=== PATIENT | female | born 2005 | race Caucasian/White ===

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

== ENCOUNTER 2023-02-24 16:42 | Outpatient (CLI) | payer SELFPAY ==
[2023-02-24 16:20] LABS: HCG Quant, Pregnancy 8 mIU/mL (1-3)
== END 2023-02-24 16:43 | disposition home or self-care (01) ==
LOC: LBO 16:50
PROVIDERS: Visit Provider Nurse Practitioner Women's Health
DX: N92.5 Other specified irregular menstruation (principal)
CPT/HCPCS: 36415; 84702

== ENCOUNTER 2023-02-27 03:16 | Outpatient (CLI) | payer SELFPAY ==
[2023-02-27 16:38] LABS: HCG Quant, Pregnancy 3 mIU/mL (1-3)
== END 2023-02-27 03:17 | disposition home or self-care (01) ==
PROVIDERS: Visit Provider Nurse Practitioner Women's Health
DX: N92.5 Other specified irregular menstruation (principal); Z32.02 Encounter for pregnancy test, result negative
CPT/HCPCS: 36415; 84702

== ENCOUNTER 2024-04-19 21:25 | Emergency (ER) | payer SELFPAY ==
[2024-04-19 21:26] VITALS: BP 132/85; PULSE 78; RESP 16; TEMP 36.8; O2SAT 99
--- NOTE | 2024-04-19 22:00 | ED.GENADUL_ITS ---
Discharge Plan Disposition Patient Disposition: Home Condition: Good Discharge Details Clinical Impression: Menstrual cycle problem Primary Care Provider: None,None ED Provider: Francois Chandler Home Meds and New Rx's Prescriptions: No Action budesonide-formoterol [Symbicort] 160-4.5 mcg/actuation HFA aerosol inhaler 2 puff inhalation BID Qty: 10.2 1RF Rx Instructions: take 2 puffs twice a day and 2 puffs every 4 hours as needed for work of breathing/wheezing albuterol sulfate 2.5 mg/0.5 mL solution for nebulization 2.5 mg IH Q4H PRN (Reason: shortness of breath or wheezing) Qty: 30 6RF norethindrone-e.estradiol-iron [Junel FE 09/06 (28)] 1 mg-20 mcg (21)/75 mg (7) tablet 1 tab PO DAILY Qty: 84 4RF (DME) Aerochamber Mini 1 EACH spacer 1 ea Miscellaneous DAILY Qty: 1 cetirizine 10 mg tablet 10 mg PO DAILY Qty: 30 3RF Rx Instructions: 1 tab po daily at bedtime montelukast 10 mg tablet 10 mg PO QHS Rx Instructions: Rx'd by [facility] Dash Summers 03/15/21 - JN Discharge Instructions Instructions: Absent or irregular periods Additional Instructions: At this time there is no current evidence on your workup to suggest an active . There is a chance that there may have been a very early that miscarried within the last few weeks that we are seeing trace amounts of the hCG levels from. Please follow-up closely with your obstetrics mechanical design technician. Please take Tylenol or Motrin as needed for pain. If you notice any worsening of your symptoms, or any new symptoms such as vomiting, diarrhea, fever, chills, shortness of breath, chest pain, numbness, weakness, or fainting , please return immediately to the emergency department for reevaluation. Please follow up with your primary care provider as soon as possible for reassessment and reevaluation. As always, it was a pleasure participating in your medical care today. Referrals: Annmarie Salmeron NP [NURSE PRACTITIONER] - HPI General Date/Time Provider Initiated Documentation: 04/19/24 21:25 . HPI Narrative: This is a 18-year-old female with a past medical history of regular menses, suspected potential polycystic ovarian syndrome, who is unaware of her R h status, who states that she is a G2, P0, who is on regular oral contraceptives, presents today for evaluation of potential or miscarriage. Patient states that her last menstrual cycle was in the end of February about 1 month ago. She states that this month she noticed that she was a little late as it had been about 20 days. 1.5 weeks ago she states that she took a test and it was positive. She states that she has subsequently taken 6 total test the most recent of which which was this morning which have all been positive. However she also noticed this morning that she began having some pelvic cramping, some mild vaginal bleeding, initially spotting now transitioning to a slightly heavier style of menses. She denies seeing any tissue or parts. She denies any vomiting. She does admit to some very mild breast changes potentially. She denies any other complaints at this time. No other modifying factors. Related Data Home Medications ?Medication ?Instructions ?Recorded ?Confirmed inhalational spacing device ##1 10/04/14 04/19/24 (Aerochamber Mini) cetirizine 10 mg tablet 10 mg PO DAILY #30 tab-caps 01/24/20 04/19/24 montelukast 10 mg tablet 10 mg PO QHS 03/19/21 04/19/24 albuterol sulfate 2.5 mg/0.5 mL 2.5 mg (0.5 mL) inhalation Q4H PRN 08/01/22 04/19/24 solution for nebulization shortness of breath or wheezing #30 ea budesonide-formoterol HFA 160 2 puff inhalation BID #10.2 grams 08/01/22 04/19/24 mcg-4.5 mcg/actuation aerosol inhaler (Symbicort) norethindrone 1 mg-ethinyl 1 tab PO DAILY #84 tabs 09/24/22 04/19/24 estradiol 20 mcg (21)-iron 75 mg (7) tablet (09/06 (28)) Previous Rx's ?Medication ?Instructions ?Recorded cetirizine 10 mg tablet 10 mg PO DAILY #30 tab-caps 01/24/20 albuterol sulfate 2.5 mg/0.5 mL 2.5 mg (0.5 mL) inhalation Q4H PRN 08/01/22 solution for nebulization shortness of breath or wheezing #30 ea budesonide-formoterol HFA 160 2 puff inhalation BID #10.2 grams 08/01/22 mcg-4.5 mcg/actuation aerosol inhaler (Symbicort) norethindrone 1 mg-ethinyl 1 tab PO DAILY #84 tabs 09/24/22 estradiol 20 mcg (21)-iron 75 mg (7) tablet ( FE 09/06 (28)) Allergies Allergy/AdvReac Type Severity Reaction Status Date / Time cat dander Allergy Verified 02/24/23 15:28 dog dander Allergy Verified 02/24/23 15:28 No Known Drug Allergies Allergy Verified 02/24/23 15:28 Dust mite Allergy Mild Uncoded 02/24/23 15:28 Environmental Allergy Uncoded 02/24/23 15:28 General Stated 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 3.ENT: Atraumatic external nose and ears. Moist MM. Neck: Symmetric, trachea midline, No thyromegaly. 4.CVS: +S1/S2, No murmurs or gallops. Peripheral pulses 2+ and equal in all extremities. Brisk capillary refill in all extremities. 5.RESP: Unlabored respiratory effort. Clear to auscultation bilaterally. No wheezes rales or rhonchi 6.GI: Soft, Nontender/Nondistended, No hepatosplenomegaly. No guarding or rebound. Minimal pelvic achiness. No guarding or rebound. 7.MSK: Normocephalic/Atraumatic, Extremities w/o deformity or ttp No cyanosis or clubbing, Normal movement of all extremities 8.Skin: Warm, Dry. No rashes or lesions. 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 Sensation grossly intact, no focal neurologic deficits. 10.Psych: (AAO) x3. Appropriate mood and affect Course Vital Signs Vital signs: Vital Signs Temperature 36.8 C 04/19/24 21:26 Pulse 78 04/19/24 21:26 Respiratory Rate 16 04/19/24 21:26 Blood Pressure 132/85 04/19/24 21:26 Pulse Oximetry 99 04/19/24 21:26 Temperature 36.8 C 04/19/24 21:26 Temperature Source Temporal Artery Scan 04/19/24 21:26 Pulse 78 04/19/24 21:26 Respiratory Rate 16 04/19/24 21:26 Respiratory Effort Normal, Non-Labored 04/19/24 21:35 Blood Pressure 132/85 04/19/24 21:26 Blood Pressure Position Sitting 04/19/24 21:26 Pulse Oximetry 99 04/19/24 21:26 Oxygen Delivery Method Room Air 04/19/24 21:26 Oxygen Flow Rate 0 04/19/24 21:26 Pain Level 4 04/19/24 21:41 Lab/Test Results Lab/Test Results: POC- Test(urine) Negative Medical Decision Making This is a 18-year-old female with a past medical history of regular menses, suspected potential polycystic ovarian syndrome, who is unaware of her Rh status, who states that she is a G2, P0, who is on regular oral contraceptives, presents today for evaluation of potential or miscarriage. Patient states that her last menstrual cycle was in the end of February about 1 month ago. She states that this month she noticed that she was a little late as it had been about 20 days. 1.5 weeks ago she states that she took a test and it was positive. She states that she has subsequently taken 6 total test the most recent of which which was this morning which have all been positive. However she also noticed this morning that she began having some pelvic cramping, some mild vaginal bleeding, initially spotting now transitioning to a slightly heavier style of menses. She denies seeing any tissue or parts. She denies any vomiting. She does admit to some very mild breast changes potentially. She denies any other complaints at this time. No other modifying factors. Exam demonstrates a well-appearing female, no evidence of an acute surgical abdomen. Vital signs stable, no tachycardia, hypotension, or other abnormalities. test was performed and this is negative. This does not seem to correlate with the 6 positive test that were done at home. No heart sounds can be identified. Differential includes normal menses, miscarriage with this most recent testing being at the tail end of the transition towards a negative hCG level. The patient's last test was this morning when she woke up, and there may have been a trace amount of hCG from the overnight levels that could have made a positive. We will get blood testing today, check her Rh status, monitor closely and reassess. I did offer Tylenol and Motrin for the patient, but she has declined. Patient's Rh status is Rh+. No indication for RhoGAM. Patient's hCG level is 18, notably low. I suspect that this is the residual from a very early miscarriage that happened a week or so ago. I suspect that this bleeding now is more so a reflection of menstrual cycle in conjunction with this miscarrying epi sode. Patient otherwise remains hemodynamically stable. Will recommend outpatient follow-up with OB in the next week. Patient stable for discharge. Discussed red flags for which to return. I have extensively reviewed the treatment plan and discharge instructions with the patient. I have addressed all patient concerns at this time. The patient was made aware of what symptoms to monitor for that would warrant a return to the emergency department. Discussed the plan with the patient, they demonstrate verbal understanding and agreement with our assessment and plan at this time. The documentation in this chart was dictated using [employer] dictation software. Please excuse any dictation errors. 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 Sister No problems noted. Sister No problems noted. Sister No problems noted. Sister No problems noted. Sister No problems noted. Brother No problems noted. Social History Smoking/Tobacco Use Status: Never Second Hand Exposure: Yes Smoking risk assessment performed?: Yes Alcohol Intake: never Drug use: Never Substance use type: former substance user Adopted: No Caregiver/Support person: Yes (Lives with Mom, Stepfather and 3 younger siblings) Foster care: No Household members: family Housing: house Number of Children: 0 number of grandchildren: 0 Communication Needs: Corrective Lenses Education Level: college Details: Did start college, not currently continuing Pets and animals: Yes (1 cat) Pets and animals: cat(s) Do you feel safe at home: Yes Do you feel safe in your relationship?: Yes Additional Social history: Has bifocal glasses, does not use regularly. Female Reproductive History Menstrual Age of Menarche: 12 control method: pills History History 0 Para Hx # Term Pregnancies Multiple births Hx # Pregnancies Ectopic pregnancies AB induced Hx Number of Living Children AB spontaneous
[2024-04-19 22:43] LABS: HCG Quant, Pregnancy 18 mIU/mL (1-3)
--- NOTE | 2024-04-19 23:01 | NUR.NOTE ---
Referral faxed to [facility] to f/u in a week for miscarriage.Nursing Note:
== END 2024-04-19 23:03 | disposition home or self-care (01) ==
LOC: ER 22:44
PROVIDERS: Emergency Provider Student in an Organized Health Care Education/Training Program
DX: N92.6 Irregular menstruation, unspecified (principal)
CPT/HCPCS: 81025; 86900; 86901; 99283; 84702

== ENCOUNTER 2024-09-09 23:16 | Emergency (ER) | payer SELFPAY ==
[2024-09-09 23:18] VITALS: BP 116/67; PULSE 95; RESP 16; TEMP 36.4; O2SAT 99
[2024-09-09 23:25] VITALS: BP 116/67; PULSE 95; RESP 16; TEMP 36.4; O2SAT 99
[2024-09-09 23:40] LABS: Bilirubin Negative (Negative); Blood Negative (Negative); Clarity Clear (Clear); Glucose Negative (Negative); Ketones Negative (Negative); Leukocyte Esterase Large (Negative); Nitrite Negative (Negative); Specific Gravity 1.025 (1.005-1.025); Urobilinogen 0.2 mg/dL (Up to 0.2)
[2024-09-09 23:46] LABS: Bacteria Few HPF (Negative); C & S Indicated? No; Casts Negative LPF (Negative); Crystals Negative HPF (Negative); Epithelial Cells Moderate HPF (Negative); Mucus Negative (Negative); RBC 0-2 HPF (0-2)
[2024-09-10] MEDS: Ondansetron O.D.T. 4 MG TABEF PO (00:19)
[2024-09-10 00:26] LABS: Abs Immature Grans 0.03 10^3/uL (0.0-0.06); Absolute Basophil Count 0.05 10^3/uL (0.0-0.2); Absolute Eosinophil Count 0.23 10^3/uL (0.0-0.7); Absolute Lymphocyte Count 1.89 10^3/uL (1.2-3.4); Absolute Monocyte Count 0.76 10^3/uL (0.1-0.8); Absolute Neutrophil Count 4.88 10^3/uL (1.2-6.7); Basophils % 0.6 %; Eosinophils % 2.9 %; HCT 38.1 % (36.0-46.0); HGB 12.9 g/dL (11.2-15.7); Immature Grans % 0.4 %; Lymphocytes % 24.1 %; MCH 29.8 pg (27.0-33.0); MCHC 33.9 % (32.0-36.0); MCV 88 fL (80-95); MPV 9.7 fL (8.0-11.0); Monocytes % 9.7 %; Neutrophils % 62.3 %; Platelet Count 210 10^3/uL (130-400); RBC 4.33 10^6/uL (3.93-5.22); RDW-SD 41.8 fL; WBC 7.84 10^3/uL (4.4-10.8)
--- NOTE | 2024-09-10 00:38 | ED.GENADUL_ITS ---
Discharge Plan Disposition Patient Disposition: Other Disposition Not Listed Other Facility: TRANSFER [facility] ED to ED Condition: Good Discharge Details Clinical Impression: Abdominal pain affecting , COVID Primary Care Provider: Unknown,Unknown ED Provider: Carla Rebollar Home Meds and New Rx's Prescriptions: Continued Vitamin Plus Low Iron 27 mg iron- 1 mg tablet 1 tab PO DAILY Qty: 90 5RF budesonide-formoterol [Symbicort] 160-4.5 mcg/actuation HFA aerosol inhaler 2 puff inhalation BID Qty: 10.2 1RF Rx Instructions: take 2 puffs twice a day and 2 puffs every 4 hours as needed for work of breathing/wheezing albuterol sulfate 2.5 mg/0.5 mL solution for nebulization 2.5 mg IH Q4H PRN (Reason: shortness of breath or wheezing) Qty: 30 6RF (DME) Aerochamber Mini 1 EACH spacer 1 ea Miscellaneous DAILY Qty: 1 cetirizine 10 mg tablet 10 mg PO DAILY Qty: 30 3RF Rx Instructions: 1 tab po daily at bedtime montelukast 10 mg tablet 10 mg PO QHS Rx Instructions: Rx'd by [facility] Dash Summers 03/15/21 - JN Discharge Instructions Additional Instructions: Go directly to the [facility] ED at [address], [place] [id number] HPI General Mode of arrival: ambulatory . Date/Time Provider Initiated Documentation: 09/09/24 23:18 . Limitations to Documentation: no limitations . Information obtained by: patient . HPI Narrative: 18yo F, reports being 11w gestation by early ultrasound with confirmed cruz IUP, presenting for crampy lower abdominal and pelvic pain for 1 day. Has had N/V (worse than it has been thus far in the ) and diminished appetite for 2 days. Is drinking well and keeping down fluids. Feels generally unwell and 'sore all over'. No vaginal bleeding or leaking or unusual discharge. No fevers, chills, rash, sore throat, cough, shortness of breath, or other concerns . Related Data Home Medications ?Medication ?Instructions ?Recorded ?Confirmed inhalational spacing device ##1 10/04/14 09/10/24 (Aerochamber Mini) cetirizine 10 mg tablet 10 mg PO DAILY #30 tab-caps 01/24/20 09/10/24 montelukast 10 mg tablet 10 mg PO QHS 03/19/21 09/10/24 albuterol sulfate 2.5 mg/0.5 mL 2.5 mg (0.5 mL) inhalation Q4H PRN 08/01/22 09/10/24 solution for nebulization shortness of breath or wheezing #30 ea budesonide-formoterol HFA 160 2 puff inhalation BID #10.2 grams 08/01/22 09/10/24 mcg-4.5 mcg/actuation aerosol inhaler (Symbicort) vitamin with calcium 1 tab PO DAILY #90 tabs 07/23/24 09/10/24 no.72-iron 27 mg-folic acid 1 mg tablet ( Vitamins Plus Low Iron) Previous Rx's ?Medication ?Instructions ?Recorded cetirizine 10 mg tablet 10 mg PO DAILY #30 tab-caps 01/24/20 albuterol sulfate 2.5 mg/0.5 mL 2.5 mg (0.5 mL) inhalation Q4H PRN 08/01/22 solution for nebulization shortness of breath or wheezing #30 ea budesonide-formoterol HFA 160 2 puff inhalation BID #10.2 grams 08/01/22 mcg-4.5 mcg/actuation aerosol inhaler (Symbicort) vitamin with calcium 1 tab PO DAILY #90 tabs 07/23/24 no.72-iron 27 mg-folic acid 1 mg tablet ( Vitamins Plus Low Iron) Allergies Allergy/AdvReac Type Severity Reaction Status Date / Time cat dander Allergy Hives Verified 09/10/24 01:21 dog dander Allergy Hives Verified 09/10/24 01:21 No Known Drug Allergies Allergy Other (See Verified 09/10/24 01:21 Comment) Dust mite Allergy Mild Wheezing Uncoded 09/10/24 01:21 Environmental Allergy Hives Uncoded 09/10/24 01:21 General Stated Complaint: Abd Prob THIERNO: 3 Review of Systems Narrative: see HPI Exam Narrative Exam Narrative: General: Alert, well appearing, well nourished, in no acute distress. Head: Normocephalic, atraumatic Neck: Trachea midline, ?Neck supple. ENT: ?MMM.? No oropharygeal lesions or exudate. Cardiac: ?RRR, no murmurs appreciated Resp: No respiratory distress. CTAB. Abd: ?Soft, non-distended, tender in lower abdomen moreso in suprapubic/uterine region. Extremities: ?No deformities.? No peripheral edema. Neurologic: GCS 15. ? Moves all extremities freely against gravity Course Vital Signs Vital signs: Vital Signs Temperature 36.4 C L 09/09/24 23:18 Pulse 95 H 09/09/24 23:18 Respiratory Rate 16 09/09/24 23:18 Blood Pressure 116/67 09/09/24 23:18 Pulse Oximetry 99 09/09/24 23:18 Temperature 36.4 C L 09/09/24 23:25 Temperature Source Temporal Artery Scan 09/09/24 23:25 Pulse 95 H 09/09/24 23:25 Respiratory Rate 16 09/09/24 23:25 Blood Pressure 116/67 09/09/24 23:25 Blood Pressure Position Sitting 09/09/24 23:25 Pulse Oximetry 99 09/09/24 23:25 Oxygen Delivery Method Room Air 09/09/24 23:25 Oxygen Flow Rate 0 09/09/24 23:18 Pain Level 7 09/09/24 23:25 Lab/Test Results Lab/Test Results: Laboratory Tests Range/Units 09/09/24 09/10/24 23:30 00:19 WBC (4.4-10.8) 10^3/uL 7.84 RBC (3.93-5.22) 10^6/uL 4.33 Hgb (11.2-15.7) g/dL 12.9 Hct (36.0-46.0) % 38.1 MCV (80-95) fL 88 MCH (27.0-33.0) pg 29.8 MCHC (32.0-36.0) % 33.9 RDW (11.7-14.6) % 13.0 Plt Count (130-400) 10^3/uL 210 MPV (8.0-11.0) fL 9.7 Immature Gran % % 0.4 Neutrophils % % 62.3 Lymphocytes % % 24.1 Monocytes % % 9.7 Eosinophils % % 2.9 Basophils % % 0.6 Nucleated RBC % (0.0-0.3) % 0.0 Absolute Neutrophils (1.2-6.7) 10^3/uL 4.88 Absolute Lymphocytes (1.2-3.4) 10^3/uL 1.89 Absolute Monocytes (0.1-0.8) 10^3/uL 0.76 Absolute Eosinophils (0.0-0.7) 10^3/uL 0.23 Absolute Basophils (0.0-0.2) 10^3/uL 0.05 Urine Color (Yellow) Yellow Urine Clarity (Clear) Clear Urine pH (5-8) 7.0 Ur Specific [place] (1.005-1.025) 1.025 Urine Protein (Neg-Trace) mg/dL Trace Urine Ketones (Negative) mg/dL Negative Urine Blood (Negative) Negative Urine Nitrite (Negative) Negative Urine Bilirubin (Negative) Negative Urine Urobilinogen (Up to 0.2) mg/dL 0.2 Ur Leukocyte Esterase (Negative) Large H Urine RBC (0-2) HPF 0-2 Urine WBC (0-5) HPF 3-5 Ur Epithelial Cells (Negative) HPF Moderate Urine Crystals (Negative) HPF Negative Urine Bacteria (Negative) HPF Few Urine Casts (Negative) LPF Negative Urine Mucus (Negative) Negative Ur Culture Indicated? No Urine Glucose (Negative) mg/dL Negative Medical Decision Making 18yo F, reports being 11w gestation by early ultrasound with confirmed cruz IUP, presenting for crampy lower abdominal and pelvic pain for 1 day. Vital signs reassuring on arrival, does have lower abdominal tendnerness on exam. FHT 140's. Warrants imaging (would start with pelvic US), unfortunately no US overnight at [facility]. Labs reviewed as below, CBC and CMP reassuring. POC Covid +, likely explains N/V and malaise but not abdominal pain. Discussed with [facility] transfer center; accepted ED to ED under Dr. Baltazar. Pt prefers to go by private vehicle, and she is hemodynamically stable, overall well appearing, has a confirmed IUP, and is not bleeding, I feel this is not unreasonable. Lab Data Lab results reviewed: Yes I reviewed the patient's lab results. Labs: Laboratory Tests Range/Units 09/09/24 09/10/24 23:30 00:19 WBC (4.4-10.8) 10^3/uL 7.84 RBC (3.93-5.22) 10^6/uL 4.33 Hgb (11.2-15.7) g/dL 12.9 Hct (36.0-46.0) % 38.1 MCV (80-95) fL 88 MCH (27.0-33.0) pg 29.8 MCHC (32.0-36.0) % 33.9 RDW (11.7-14.6) % 13.0 Plt Count (130-400) 10^3/uL 210 MPV (8.0-11.0) fL 9.7 Immature Gran % % 0.4 Neutrophils % % 62.3 Lymphocytes % % 24.1 Monocytes % % 9.7 Eosinophils % % 2.9 Basophils % % 0.6 Nucleated RBC % (0.0-0.3) % 0.0 Absolute Neutrophils (1.2-6.7) 10^3/uL 4.88 Absolute Lymphocytes (1.2-3.4) 10^3/uL 1.89 Absolute Monocytes (0.1-0.8) 10^3/uL 0.76 Absolute Eosinophils (0.0-0.7) 10^3/uL 0.23 Absolute Basophils (0.0-0.2) 10^3/uL 0.05 Sodium (136-145) mmol/L 139 Potassium (3.5-5.1) mmol/L 3.9 Chloride (98-107) mmol/L 104 Carbon Dioxide (21.0-32.0) mmol/L 27.5 Anion Gap (3-11) mmol/L 7.5 BUN (7-18) mg/dL 6 L Creatinine (0.55-1.02) mg/dL 0.6 Est GFR (CKD-EPI 2020) (mL/min/1.73m2) 131.70 Glucose (74-106) mg/dL 88 Calcium (8.5-10.1) mg/dL 9.0 Total Bilirubin (0.2-1.0) mg/dL 0.20 AST (15-37) U/L 12 L ALT (14-59) U/L 19 Alkaline Phosphatase (46-116) U/L 64 Total Protein (6.4-8.2) g/dL 6.7 Albumin (3.4-5.0) g/dL 3.3 L Urine Color (Yellow) Yellow Urine Clarity (Clear) Clear Urine pH (5-8) 7.0 Ur Specific [place] (1.005-1.025) 1.025 Urine Protein (Neg-Trace) mg/dL Trace Urine Ketones (Negative) mg/dL Negative Urine Blood (Negative) Negative Urine Nitrite (Negative) Negative Urine Bilirubin (Negative) Negative Urine Urobilinogen (Up to 0.2) mg/dL 0.2 Ur Leukocyte Esterase (Negative) Large H Urine RBC (0-2) HPF 0-2 Urine WBC (0-5) HPF 3-5 Ur Epithelial Cells (Negative) HPF Moderate Urine Crystals (Negative) HPF Negative Urine Bacteria (Negative) HPF Few Urine Casts (Negative) LPF Negative Urine Mucus (Negative) Negative Ur Culture Indicated? 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 Sister No problems noted. Sister No problems noted. Sister No problems noted. Sister No problems noted. Sister No problems noted. Brother No problems noted. Social History Smoking/Tobacco Use Status: Never Second Hand Exposure: Yes Smoking risk assessment performed?: Yes Alcohol Intake: never Drug use: Never Substance use type: former substance user Adopted: No Caregiver/Support person: Yes (Lives with Mom, Stepfather and 3 younger siblings) Foster care: No Household members: family Housing: house Number of Children: 0 number of grandchildren: 0 Communication Needs: Corrective Lenses Education Level: college Details: Did start college, not currently continuing Pets and animals: Yes (1 cat) Pets and animals: cat(s) Do you feel safe at home: Yes Do you feel safe in your relationship?: Yes Additional Social history: Has bifocal glasses, does not use regularly. Female Reproductive History Menstrual Age of Menarche: 12 control method: pills History History 0 Para Hx # Term Pregnancies Multiple births Hx # Pregnancies Ectopic pregnancies AB induced Hx Number of Living Children AB spontaneous
[2024-09-10 00:46] LABS: ALT 19 U/L (14-59); AST 12 U/L (15-37); Albumin 3.3 g/dL (3.4-5.0); Alkaline Phosphatase 64 U/L (46-116); Anion Gap 7.5 mmol/L (3-11); BUN 6 mg/dL (7-18); CO2 27.5 mmol/L (21.0-32.0); CREATININE 0.6 mg/dL (0.55-1.02); Chloride 104 mmol/L (98-107); Glucose 88 mg/dL (74-106); Potassium 3.9 mmol/L (3.5-5.1); Sodium 139 mmol/L (136-145); Total Protein 6.7 g/dL (6.4-8.2)
[2024-09-10 01:33] VITALS: BP 115/76; PULSE 79; RESP 16; O2SAT 99
== END 2024-09-10 01:33 | disposition other institution (70) ==
PROVIDERS: Emergency Provider Student in an Organized Health Care Education/Training Program
DX: U07.1 COVID-19; R11.2 Nausea with vomiting, unspecified; O26.891 Other specified pregnancy related conditions, first trimester
CPT/HCPCS: 36415; 80053; 99285; 81003; 81015; 85025

== ENCOUNTER 2024-09-14 03:06 | Outpatient (CLI) | payer SELFPAY ==
[2024-09-14 12:17] LABS: Panorama Kit Sent via Fed Ex
[2024-09-14 12:33] LABS: Abs Immature Grans 0.08 10^3/uL (0.0-0.06); Absolute Basophil Count 0.06 10^3/uL (0.0-0.2); Absolute Eosinophil Count 0.12 10^3/uL (0.0-0.7); Absolute Lymphocyte Count 2.17 10^3/uL (1.2-3.4); Absolute Monocyte Count 0.38 10^3/uL (0.1-0.8); Absolute Neutrophil Count 6.58 10^3/uL (1.2-6.7); Basophils % 0.6 %; Eosinophils % 1.3 %; HGB 13.6 g/dL (11.2-15.7); Immature Grans % 0.9 %; Lymphocytes % 23.1 %; MCH 29.6 pg (27.0-33.0); MCV 87 fL (80-95); MPV 9.6 fL (8.0-11.0); Neutrophils % 70.1 %; Platelet Count 239 10^3/uL (130-400); RDW 12.7 % (11.7-14.6); RDW-SD 40.5 fL; WBC 9.39 10^3/uL (4.4-10.8)
[2024-09-14 13:07] LABS: TSH (W/Ref FT4) 0.82 uIU/mL (0.36-3.74)
[2024-09-14 22:47] LABS: Hepatitis B Surface Ag Negative (Negative)
[2024-09-14 23:16] LABS: HIV-1/2 Ag & Ab Screen Negative (Negative)
[2024-09-14 23:22] LABS: Hepatitis C Ab w Rflx HCV PCR Negative (Negative)
[2024-09-15 10:58] LABS: Rubella IgG Ab (UVM) Positive (See Note)
[2024-09-15 11:02] LABS: Varicella IgG Antibody Positive (See Note)
[2024-09-16 17:46] LABS: Syphilis IgG w/Reflex Nonreactive (Nonreactive)
[2024-09-28 14:48] LABS: Result Summary NEGATIVE; Specimen WB Whole Blood
== END 2024-09-14 03:07 | disposition home or self-care (01) ==
LOC: LBO 03:06
PROVIDERS: Visit Provider Advanced Practice Midwife
DX: Z34.91 Encounter for supervision of normal pregnancy, unspecified, first trimester (principal); Z3A.01 Less than 8 weeks gestation of pregnancy; E84.9 Cystic fibrosis, unspecified
CPT/HCPCS: 36415; 81220; 81222; 86787; 86803; 86850; 86900; 86901; 87340; 87389; 84443; 85025; 86762; 86780

== ENCOUNTER 2024-09-14 12:03 | Outpatient (REF) | payer SELFPAY ==
[2024-09-14 13:18] LABS: *AMPHETAMINES SCREEN URINE Negative (Negative); *BARBITURATES SCREEN URINE Negative (Negative); *BENZODIAZEPINES SCREEN URINE Negative (Negative); Cannabinoids THC Negative (Negative); Cocaine Screen,Urine Negative (Negative); METHADONE URINE SCREEN Negative (Negative); OPIATES URINE SCREEN Negative (Negative); Tricyclic Antidepressants Negative (Negative)
[2024-09-15 11:16] LABS: Fentanyl Scr w/Rfx Confirm Negative ng/mL (<1)
[2024-09-15 12:43] LABS: Chlamydia Result Positive (Negative); GC Result Negative (Negative)
[2024-09-21 10:17] LABS: Buprenorphine Negative ng/mL (Cutoff: 5.0); Norbuprenorphine Negative ng/mL (Cutoff: 2.5)
== END 2024-09-14 12:04 | disposition home or self-care (01) ==
LOC: LBN 12:03
PROVIDERS: Visit Provider Advanced Practice Midwife
DX: Z34.91 Encounter for supervision of normal pregnancy, unspecified, first trimester (principal)
CPT/HCPCS: 80307; 80348; 87491; 87591; 87086

== ENCOUNTER 2024-11-08 19:39 | Outpatient (CLI) | payer MEDICAID, SELFPAY ==
[2024-11-08 19:54] VITALS: BP 118/64; PULSE 73; TEMP 36.6
--- NOTE | 2024-11-08 20:27 | W.OBNST ---
Date of service: 11/08/24 Time of Service: 20:28 NST Evaluation Reason for NST Reasons for Nonstress Test: OTHER, SEE COMMENT (uterine cramping) NST Information Contraction Frequency: none NST Evaluation Patient States Movement: Present FHR Baseline: 145 Note Ultrasound Done: N/A. NST Note Note: 18y.o Patient arrived via ED for complaints of john paredes contractions at 19w5d and desiring PADDY after treatment for chlamydia. FHTs 145. Not in labor. Given abdominal binder and discharged to home. UC pending. NST Reviewed and Verified by: Anca Loyola
[2024-11-10 13:05] LABS: Chlamydia Result Negative (Negative); GC Result Negative (Negative)
== END 2024-11-08 20:30 ==
LOC: ER 19:43 → BCD 19:47 → OBS 19:52
PROVIDERS: Advanced Practice Midwife; Visit Provider Obstetrics & Gynecology
DX: O47.02 False labor before 37 completed weeks of gestation, second trimester (principal); Z3A.19 19 weeks gestation of pregnancy
CPT/HCPCS: 87491; 87591; 59025

== ENCOUNTER 2024-11-09 16:22 | Outpatient (REF) | payer MEDICAID, SELFPAY ==
[2024-11-11 11:47] LABS: Chlamydia Result Negative (Negative); GC Result Negative (Negative)
== END 2024-11-09 16:23 | disposition home or self-care (01) ==
LOC: LBN 16:22
PROVIDERS: Visit Provider Advanced Practice Midwife
DX: O98.812 Other maternal infectious and parasitic diseases complicating pregnancy, second trimester; A74.9 Chlamydial infection, unspecified
CPT/HCPCS: 87491; 87591; 87086

== ENCOUNTER 2024-11-10 01:00 | Outpatient (CLI) | payer MEDICAID, SELFPAY ==
--- NOTE | 2024-11-10 07:45 | DI.US_ITS ---
Exam(s) US OB 2-3 TRIMESTER EXAM: US OB 2-3 TRIMESTER CLINICAL HISTORY: 19 wk SURVEY,Z3A.01,Z34.91. TECHNIQUE: Transabdominal obstetrical ultrasound performed. COMPARISON: US POCUS EXAM from 08/20/2024 FINDINGS: Number of fetuses: 1 position: VARIED Placental location: ANTERIOR No evidence of previa. BIOMETRIC DATA: BPD: 4.34cm, 19weeks 1day HC: 16.86cm, 19weeks 4days AC: 15.22cm, 20weeks 3days FL: 2.96cm, 19weeks 1day Cisterna magna: 4.2mm Cerebellum: 1.87cm Lateral ventricle: EFW: 312.08g, 0.7lb, 48.7% Composite Age: 19weeks 4days JULIUS: 04/02/2025 Heart Rate: 150bpm Amniotic fluid index: Amount of fluid is within normal limits. ANATOMICAL SURVEY: Four-chambered heart: Unremarkable. LVOT: Unremarkable. RVOT: Unremarkable. Left-sided stomach: Unremarkable. urinary bladder: Unremarkable. Bilateral kidneys: Unremarkable. Three-vessel cord: Unremarkable. Cord insertion: Unremarkable. Posterior fossa:Unremarkable. ventricles: Unremarkable. nose: Unremarkable. lips: Unremarkable. palate: Unremarkable. spine: Unremarkable. Two arms and two legs: Unremarkable. IMPRESSION: 1. Single live intrauterine gestation as above. 2. Normal anatomic survey. DATA REPOSITORY:
== END 2024-11-10 01:20 | disposition other institution (70) ==
LOC: DI 01:00
PROVIDERS: Visit Provider Advanced Practice Midwife
DX: Z34.92 Encounter for supervision of normal pregnancy, unspecified, second trimester (principal); Z3A.20 20 weeks gestation of pregnancy
CPT/HCPCS: 76805

== ENCOUNTER 2025-01-03 04:12 | Outpatient (CLI) | payer MEDICAID, SELFPAY ==
[2025-01-03 14:45] LABS: HCT 35.4 % (36.0-46.0); HGB 11.6 g/dL (11.2-15.7); MCH 28.9 pg (27.0-33.0); MCHC 32.8 % (32.0-36.0); MCV 88 fL (80-95); MPV 10.4 fL (8.0-11.0); Platelet Count 253 10^3/uL (130-400); RBC 4.01 10^6/uL (3.93-5.22); RDW 12.4 % (11.7-14.6); RDW-SD 39.9 fL; WBC 10.17 10^3/uL (4.4-10.8)
[2025-01-03 16:11] LABS: Glucose,1 Hr (Glucola) 128 mg/dL (80-140)
== END 2025-01-03 04:13 | disposition home or self-care (01) ==
LOC: LBO 04:12
PROVIDERS: Advanced Practice Midwife; Visit Provider Advanced Practice Midwife
DX: Z34.92 Encounter for supervision of normal pregnancy, unspecified, second trimester (principal)
CPT/HCPCS: 36415; 82950; 85027

== ENCOUNTER 2025-01-15 19:10 | Outpatient (CLI) | payer MEDICAID, SELFPAY ==
[2025-01-15 20:09] VITALS: BP 112/69; PULSE 80; TEMP 36.4
[2025-01-15 20:12] VITALS: BP 112/69; PULSE 80; RESP 16; TEMP 36.4
[2025-01-15 20:16] VITALS: BP 112/69; PULSE 80; RESP 16; TEMP 36.4
[2025-01-15 20:27] VITALS: BP 112/69; PULSE 80; TEMP 36.4
[2025-01-15 20:51] LABS: Bilirubin Negative (Negative); Blood Negative (Negative); Clarity Clear (Clear); Glucose Negative (Negative); Ketones Negative (Negative); Leukocyte Esterase Negative (Negative); Nitrite Negative (Negative); Urobilinogen 0.2 mg/dL (Up to 0.2)
--- NOTE | 2025-01-16 00:19 | PDOC.NST_ITS ---
Date of service: 01/15/25 Time of Service: 21:00 NST Evaluation Reason for NST Reasons for Nonstress Test: FALSE LABOR and LABOR Gestational Age Gestational Age in Weeks and Days: 29 Weeks and 3Days Test and Monitor Explained Test/Monitor Explained: Test Explained Vital Signs Blood Pressure: 112/69 Pulse: 80 Temperature: 97.5 F Urine Results Urine Protein: Negative Urine Ketones: Negative Urine Glucose: Negative Urine Blood: Negative NST Information Date on Monitor: 01/15/25 Time on Monitor: 19:56 Date off Monitor: 01/15/25 Time off Monitor: 20:27 Total Time on Monitor: 31 NST Interventions: PO Hydration Contraction Frequency: 0 contrax while on monitor NST Evaluation Patient States Movement: Present FHR Baseline: 125 Variability: Moderate 6-25 bpm Accelerations: 10x10 Decelerations: None NST Results: Reactive Note Ultrasound Done: N/A. NST Note Note: Lashell's mother called and reported that she was having contractions every 20 minutes at home which she said felt like menstrual cramps. No evidence of contractions on the monitor. UA sent with reflex. chlamydia test of cure sent. Signs of labor reviewed. Follow up at [facility]. NST Reviewed and Verified by: Abigail Mckeon
[2025-01-16 00:21] VITALS: BP 112/69; PULSE 80; TEMP 36.4
[2025-01-17 12:01] LABS: Chlamydia Result Negative (Negative); GC Result Negative (Negative)
== END 2025-01-15 20:53 | disposition other institution (70) ==
LOC: BCD 19:27 → OBS 20:10
PROVIDERS: Visit Provider Advanced Practice Midwife
DX: O47.03 False labor before 37 completed weeks of gestation, third trimester (principal); Z3A.29 29 weeks gestation of pregnancy
CPT/HCPCS: 87491; 87591; 59025; 81003; G0378

== ENCOUNTER 2025-01-18 12:01 | Outpatient (REF) | payer MEDICAID, SELFPAY ==
[2025-01-18 12:50] LABS: *AMPHETAMINES SCREEN URINE Negative (Negative); *BARBITURATES SCREEN URINE Negative (Negative); *BENZODIAZEPINES SCREEN URINE Negative (Negative); Cannabinoids THC Negative (Negative); Cocaine Screen,Urine Negative (Negative); METHADONE URINE SCREEN Negative (Negative); OPIATES URINE SCREEN Negative (Negative)
[2025-01-18 12:51] LABS: Tricyclic Antidepressants Negative (Negative)
[2025-01-19 11:57] LABS: Fentanyl Scr w/Rfx Confirm Negative ng/mL (<1)
[2025-01-25 09:39] LABS: Buprenorphine Negative ng/mL (Cutoff: 5.0); Norbuprenorphine Negative ng/mL (Cutoff: 2.5)
== END 2025-01-18 12:02 | disposition home or self-care (01) ==
LOC: LBN 12:01
PROVIDERS: Visit Provider Advanced Practice Midwife
DX: Z34.93 Encounter for supervision of normal pregnancy, unspecified, third trimester
CPT/HCPCS: 80307; 80348

== ENCOUNTER 2025-02-19 19:58 | Outpatient (CLI) | payer MEDICAID, SELFPAY ==
[2025-02-19 20:24] VITALS: BP 119/68; PULSE 96
--- NOTE | 2025-02-19 20:51 | W.OBNST ---
Date of service: 02/19/25 Time of Service: 20:51 NST Evaluation Reason for NST Reasons for Nonstress Test: FALSE LABOR Reason for NST Other: Decreased movement Gestational Age Gestational Age in Weeks and Days: 34 Weeks and 3Days Test and Monitor Explained Test/Monitor Explained: Test Explained, Monitor Explained and Patient Verbalized Understanding Vital Signs Blood Pressure: 119/68 Pulse: 96 Urine Results Urine Protein: Negative Urine Ketones: Negative Urine Glucose: Negative Urine Blood: Negative NST Information Date on Monitor: 02/19/25 Time on Monitor: 20:15 Date off Monitor: 02/19/25 Time off Monitor: 20:40 Total Time on Monitor: 25 NST Interventions: None Contraction Frequency: 1 in 20 minutes NST Evaluation Patient States Movement: Present FHR Baseline: 125 Variability: Moderate 6-25 bpm Accelerations: 15x15 Decelerations: None NST Results: Reactive Note Ultrasound Done: N/A. NST Note Note: Pt NAD, abd exam negative, soft and nontender, no bruising or scratches Pt states she fell last night @ 2300, was walking down a hill outside in the dark and turned her right ankle in a hole in the ground, lost her balance and fell onto her left side knocking over a chair. [place] fine afterwards but her back and left side are sore today. Declines tylenol. Blood type O+ No labor, reactive NST, UA is negative Pt felt FM x3 durin gNST, more movement audible that pt did not appreciate d/c to home, warning sx of PTL & bleeding reviewed NST Reviewed and Verified by: Meghna Garza
[2025-02-19 20:55] VITALS: BP 119/68; PULSE 96
[2025-02-20 11:50] VITALS: BP 119/68; PULSE 96
--- NOTE | 2025-02-20 11:50 | W.OBNST ---
Date of service: 02/19/25 Time of Service: 21:00 NST Evaluation Reason for NST Reasons for Nonstress Test: FALSE LABOR Reason for NST Other: Decreased movement Gestational Age Gestational Age in Weeks and Days: 34 Weeks and 3Days Test and Monitor Explained Test/Monitor Explained: Test Explained, Monitor Explained and Patient Verbalized Understanding Vital Signs Blood Pressure: 119/68 Pulse: 96 Urine Results Urine Protein: Negative Urine Ketones: Negative Urine Glucose: Negative Urine Blood: Negative NST Information Date on Monitor: 02/19/25 Time on Monitor: 20:15 Date off Monitor: 02/19/25 Time off Monitor: 20:40 Total Time on Monitor: 25 NST Interventions: None Contraction Frequency: 1 in 20 minutes NST Evaluation Patient States Movement: Present FHR Baseline: 125 Variability: Moderate 6-25 bpm Accelerations: 15x15 Decelerations: None NST Results: Reactive Note Ultrasound Done: N/A. NST Note Note: neg abd exam no labor NST Reviewed and Verified by: Meghna Garza
== END 2025-02-19 20:50 | disposition home health service (06) ==
LOC: BCD 19:58 → OBS 20:22
PROVIDERS: Visit Provider Advanced Practice Midwife
DX: O47.03 False labor before 37 completed weeks of gestation, third trimester (principal); Z3A.34 34 weeks gestation of pregnancy
CPT/HCPCS: 59025

== ENCOUNTER 2025-02-25 21:42 | Outpatient (CLI) | payer MEDICAID, SELFPAY ==
[2025-02-25 22:11] VITALS: TEMP 36.3
[2025-02-25 22:12] VITALS: BP 112/77; PULSE 80; TEMP 36.3
[2025-02-25 22:14] VITALS: BP 112/77; PULSE 80; RESP 16; TEMP 36.3
[2025-02-25 23:13] VITALS: BP 112/77; PULSE 80; TEMP 36.3
--- NOTE | 2025-02-25 23:22 | W.OBNST ---
Date of service: 02/25/25 Time of Service: 23:22 NST Evaluation Reason for NST Reasons for Nonstress Test: FALSE LABOR Gestational Age Gestational Age in Weeks and Days: 35 Weeks and 2Days Test and Monitor Explained Test/Monitor Explained: Test Explained Vital Signs Blood Pressure: 112/77 Pulse: 80 Temperature: 97.3 F NST Information Time on Monitor: 22:06 Date off Monitor: 02/25/25 Time off Monitor: 22:30 NST Evaluation Patient States Movement: Present FHR Baseline: 120 Variability: Moderate 6-25 bpm Accelerations: 15x15 and 10x10 Decelerations: None NST Results: Reactive Note Ultrasound Done: Presentation Presentation Results: vertex Coding for Presentation w/NST: Completed Exam. NST Note Note: Jaden called and reported contractions every 10-20 minutes at home. She has contractions every 5-6 minutes, mild to palpation. cervical exam closed/post/ soft/-3. vertex confirmed by POCUS exam. Signs of labor reviewed UA sent to the lab. NST Reviewed and Verified by: Abigail Mckeon
[2025-02-25 23:25] VITALS: BP 112/77; PULSE 80; TEMP 36.3
[2025-02-25 23:30] LABS: Lab Add On Test DONE
[2025-02-25 23:44] LABS: Glucose Negative (Negative)
== END 2025-02-25 23:00 ==
LOC: BCD 21:42 → OBS 22:09
PROVIDERS: Visit Provider Advanced Practice Midwife
DX: O47.03 False labor before 37 completed weeks of gestation, third trimester (principal); Z3A.35 35 weeks gestation of pregnancy
CPT/HCPCS: 59025; 81003; 87086; G0378

== ENCOUNTER 2025-03-02 15:32 | Outpatient (REF) | payer MEDICAID, SELFPAY ==
--- NOTE | 2025-03-15 15:49 | PDOC.ANES ---
Date of service: 03/15/25 Time of Service: 14:30 Anesthesia Note Report Anesthesia Note: Met Kirkpatrick today in the clinic. She was accompanied by her friend and mother, who will both be present for the delivery as support to Jaden. We discussed the indications for an epidural if she so desires and reviewed in detail the anatomy and procedural steps for its placement. Jaden verbalized she understood she would need an IV and agrees to placement and blood draw. Patient expressed she does best when explained her options in detail and any medication she will need. Beyond an elective epidural, we discussed her desire for a GA/ETT for C/S if medically indicated. She understands the risk of aspiration and potential compromise. Patient endorses she understands the risk, is uncertain if she could be awake with a spinal for a C/S, but appreciated the conversation and will weigh her options now being more knowledgeable of the risks. We also discussed her asthma and untreated sleep apnea (which her friend reports significant snoring at night and periods of apnea). Patient will be into the clinic weekly moving forward until her delivery and I encouraged her to reach out if any questions arise or call the anesthesia team.
== END 2025-03-02 15:33 | disposition home or self-care (01) ==
LOC: LBN 15:32
PROVIDERS: Visit Provider Advanced Practice Midwife
DX: Z34.93 Encounter for supervision of normal pregnancy, unspecified, third trimester
CPT/HCPCS: 87081

== ENCOUNTER 2025-03-15 16:01 | Outpatient (REF) | payer MEDICAID, SELFPAY ==
[2025-03-15 18:57] LABS: PROTEIN < 6.0 mg/dL
== END 2025-03-15 16:02 | disposition home or self-care (01) ==
LOC: LBN 16:01
PROVIDERS: Visit Provider Advanced Practice Midwife
DX: R60.0 Localized edema (principal); Z34.93 Encounter for supervision of normal pregnancy, unspecified, third trimester
CPT/HCPCS: 82565; 84156

== ENCOUNTER 2025-03-22 14:00 | Outpatient (CLI) | payer MEDICAID, SELFPAY ==
[2025-03-22 14:12] VITALS: BP 117/76; PULSE 82
[2025-03-22 14:41] VITALS: BP 117/76; PULSE 82
--- NOTE | 2025-03-22 15:24 | W.OBNST ---
Date of service: 03/22/25 Time of Service: 15:24 NST Evaluation Reason for NST Reasons for Nonstress Test: DECREASED MOVEMENT Gestational Age Gestational Age in Weeks and Days: 38 Weeks and 6Days Test and Monitor Explained Test/Monitor Explained: Test Explained, Monitor Explained and Patient Verbalized Understanding Vital Signs Blood Pressure: 117/76 Pulse: 82 NST Information Date on Monitor: 03/22/25 Time on Monitor: 13:56 Date off Monitor: 03/22/25 Time off Monitor: 14:29 Total Time on Monitor: 33 NST Interventions: PO Hydration Contraction Frequency: pt not feeling UCs, q 2-6 minutes 90-120 seconds, mild to palp NST Evaluation Patient States Movement: Decreased FHR Baseline: 125 Variability: Moderate 6-25 bpm Accelerations: 15x15 Decelerations: None NST Results: Reactive Note Ultrasound Done: N/A. NST Note Note: Lashell had her routine visit today. She reports that there has been decreased movement today. reactive NST. Kick counting reviewed. Occasional contractions which she is unaware of. RTO in 1 week. NST Reviewed and Verified by: Abigail Mckeon
[2025-03-22 15:26] VITALS: BP 117/76; PULSE 82
== END 2025-03-22 14:30 ==
LOC: BCD 14:02 → OBS 14:12
PROVIDERS: Visit Provider Advanced Practice Midwife
DX: O36.8131 Decreased fetal movements, third trimester, fetus 1 (principal); Z3A.38 38 weeks gestation of pregnancy
CPT/HCPCS: 59025

== ENCOUNTER 2025-03-26 21:21 | Outpatient (CLI) | payer MEDICAID, SELFPAY ==
[2025-03-26 23:09] VITALS: BP 113/73; PULSE 78; TEMP 36.8
--- NOTE | 2025-03-27 06:25 | W.OBNST ---
Date of service: 03/26/25 Time of Service: 23:30 NST Evaluation Reason for NST Reasons for Nonstress Test: FALSE LABOR Gestational Age Gestational Age in Weeks and Days: 39 Weeks and 3Days Test and Monitor Explained Test/Monitor Explained: Test Explained Vital Signs Blood Pressure: 113/73 Pulse: 78 Temperature: 98.2 F NST Information Time on Monitor: 22:20 Date off Monitor: 03/26/25 Time off Monitor: 23:08 NST Interventions: None Contraction Frequency: 4-7 NST Evaluation Patient States Movement: Present FHR Baseline: 135 Variability: Moderate 6-25 bpm Accelerations: 15x15 Decelerations: None NST Results: Reactive Note Ultrasound Done: N/A. NST Note Note: Jaden is a 19-year-old at 39+3 here with contractions that started to become regular and stronger around 5 p.m. She feels them in her back and in her low abdomen. Reports they have spaced out since arriving L&D. No LOF or VB. Has felt normal movement. O: NAD, talking through contractions, contractions mild by palpation FHTs: Baseline 135, moderate variability +accels, no decels SVE: Deferred A/P: - 19-year-old at 39+3 here with contractions - NST: Reactive - Discussed with patient that by observation, if this is labor, she is likely very early in her labor course. She was offered a SVE and after shared decision making, patient opted to defer the exam at this time. - She will call with stronger contractions or ROM, or any other concerns. NST Reviewed and Verified by: Carlene Forman
[2025-03-27 06:27] VITALS: BP 113/73; PULSE 78; TEMP 36.8
== END 2025-03-26 23:10 | disposition home health service (06) ==
LOC: BCD 21:21 → OBS 22:24
PROVIDERS: Visit Provider Advanced Practice Midwife
DX: O47.1 False labor at or after 37 completed weeks of gestation (principal); Z3A.39 39 weeks gestation of pregnancy
CPT/HCPCS: 59025

== ENCOUNTER 2025-03-29 14:36 | Outpatient (CLI) | payer MEDICAID, SELFPAY ==
[2025-03-29 15:07] VITALS: BP 116/73; PULSE 82
--- NOTE | 2025-03-30 08:14 | W.OBNST ---
Date of service: 03/29/25 Time of Service: 15:00 NST Evaluation Reason for NST Reasons for Nonstress Test: OTHER, SEE COMMENT Reason for NST Other: lower FHR in clinic Gestational Age Gestational Age in Weeks and Days: 39 Weeks and 6Days Test and Monitor Explained Test/Monitor Explained: Test Explained, Monitor Explained and Patient Verbalized Understanding Vital Signs Blood Pressure: 116/73 Pulse: 82 Urine Results Urine Protein: Negative Urine Ketones: Negative Urine Glucose: Negative Urine Blood: Negative NST Information Date on Monitor: 03/29/25 Time on Monitor: 14:37 Date off Monitor: 03/29/25 Time off Monitor: 15:01 Total Time on Monitor: 24 NST Interventions: PO Hydration Contraction Frequency: none NST Evaluation Patient States Movement: Present FHR Baseline: 125 Variability: Moderate 6-25 bpm Accelerations: 15x15 Decelerations: None NST Results: Reactive Note Ultrasound Done: N/A. NST Note Note: cvx check: 1/75%, mid-posterior, medium consistency, vtx -2 Duncan score 4-5 Intact membranes Pt requesting elective IOL, tentatively scheduled for 03/31/25 @ 40+1 wks NST Reviewed and Verified by: Meghna Garza
[2025-03-30 08:15] VITALS: BP 116/73; PULSE 82
== END 2025-03-29 15:08 ==
LOC: BCD 14:36 → OBS 14:50
PROVIDERS: Visit Provider Advanced Practice Midwife
DX: O36.8331 Maternal care for abnormalities of the fetal heart rate or rhythm, third trimester, fetus 1; Z3A.39 39 weeks gestation of pregnancy
CPT/HCPCS: 59025

== ENCOUNTER 2025-03-31 08:23 | Inpatient (IN) | payer MEDICAID, SELFPAY ==
[2025-03-31 08:48] LABS: HCT 34.2 % (36.0-46.0); HGB 10.5 g/dL (11.2-15.7); MCH 24.1 pg (27.0-33.0); MCHC 30.7 % (32.0-36.0); MCV 78 fL (80-95); MPV 11.0 fL (8.0-11.0); Platelet Count 266 10^3/uL (130-400); RBC 4.36 10^6/uL (3.93-5.22); RDW 14.5 % (11.7-14.6); RDW-SD 41.5 fL; WBC 8.80 10^3/uL (4.4-10.8)
[2025-03-31] MEDS: miSOPROStol 25 MCG TAB 50 MCG PO ×3 (08:59→17:20)
[2025-03-31 09:16] VITALS: BP 118/74; PULSE 85; RESP 12; TEMP 36.3
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
[2025-03-31 12:47] VITALS: BMI 31.2
[2025-03-31 13:15] VITALS: BP 116/73; PULSE 89; RESP 12; TEMP 37.1
[2025-03-31 17:20] VITALS: BP 128/80; PULSE 86; RESP 16; TEMP 36.4
[2025-03-31 19:50] VITALS: BP 141/100; PULSE 74
[2025-03-31 19:51] VITALS: BP 135/85; PULSE 65; PULSE 72; RESP 16; TEMP 36.5; O2SAT 100; O2SAT 98
[2025-03-31] MEDS: Montelukast 10 MG TAB PO (21:04)
[2025-03-31] MEDS: Zolpidem 5 MG TAB 10 MG PO (21:04)
[2025-03-31] MEDS: Budesonide/Formoterol 160/4.5 6 GM 60 PUFF INH IH (21:32)
[2025-03-31 21:37] VITALS: BP 130/74; PULSE 73; RESP 16; TEMP 36.6; O2SAT 98
[2025-03-31] MEDS: Lactated Ringers 1,000 ML 125 ML IV (21:38)
[2025-03-31] MEDS: ceFAZolin 2 GM/50 ML BAG IVPB (22:29)
[2025-04-01] VITALS (32 sets, daily range): BP systolic 99–134; BP diastolic 57–88; PULSE 55–88; RESP 12–21; TEMP 36.4–37.1; O2SAT 96–100
--- NOTE | 2025-04-01 00:23 | PGE_ITS ---
Date of service: 04/01/25 Time of Service: 00:23 Informed Consent Informed Consent: Induction of Labor and Risk,Benefits,Alternatives Discussed Assessment and Plan Assessment and plan (1) Encounter for induction of labor: Status: Acute Assessment and plan: #. 19-year-old at 40+2 here for eIOL, not yet in labor. #. Fetus Cat 1 #. Pain: Coping well with initial cramping during cervical ripening. #. Induction Course: Initial exam in clinic yesterday >>2/80/-2 (head well- applied) after 2 doses Miso. Now s/p 3 doses PO Miso (50 mg). After discussion of options, pt amenable to starting Pitocin, AROM once in a good contraction pattern. Can review option for epidural placement prior to AROM. Patient reports she needs to see how she feels in the moment to know whether or not she will be able to tolerate epidural placement, but is open to it. #. Peripheral IV was successfully placed with the use of Nitrous Oxide, 1st dose Ancef started, however Pitocin not yet started due to unit census. Will initiate once unit census allows. # Back-up MD on the unit for another patient and available PRN. Anesthesia aware that patient may be amenable to attempting epidural placement if needed and will consent her at that time (only currently consented for general anesthesia). (2) Anxiety disorder, unspecified: Status: Acute (3) Needle phobia: Status: Acute (4) Moderate persistent asthma without complication: Status: Acute Objective Abnormal lab results 03/31/25 Range/Units 08:38 Hgb 10.5 L (11.2-15.7) g/dL Hct 34.2 L (36.0-46.0) % MCV 78 L (80-95) fL MCH 24.1 L (27.0-33.0) pg MCHC 30.7 L (32.0-36.0) % Temp Pulse Resp BP Pulse Ox 97.9 F 73 16 130/74 98 03/31/25 21:37 03/31/25 21:37 03/31/25 21:37 03/31/25 21:37 03/31/25 21:37 Laboratory Results WBC 8.80 10^3/uL (4.4-10.8) 03/31/25 08:38 RBC 4.36 10^6/uL (3.93-5.22) 03/31/25 08:38 Hgb 10.5 g/dL (11.2-15.7) L 03/31/25 08:38 Hct 34.2 % (36.0-46.0) L 03/31/25 08:38 MCV 78 fL (80-95) L 03/31/25 08:38 MCH 24.1 pg (27.0-33.0) L 03/31/25 08:38 MCHC 30.7 % (32.0-36.0) L 03/31/25 08:38 RDW 14.5 % (11.7-14.6) 03/31/25 08:38 Plt Count 266 10^3/uL (130-400) 03/31/25 08:38 MPV 11.0 fL (8.0-11.0) 03/31/25 08:38 ABO/Rh O Positive 03/31/25 08:38 Antibody Screen NEGATIVE 03/31/25 08:38 Subjective Patient Reports: No new Complaints Interval history since last seen: Jaden is a 19-year-old at 40+2 here for elective induction of labor. After her 3rd dose of PO Miso, she was amenable to IV placement with the use of nitrous oxide for GBS+ prophylaxis (Ancef, per patient request secondary to family history of -cillin allergy) and initiation of Pitocin. Would like sleep aide to try to get some rest before contractions become more intense. Results Hemoglobin/Hematocrit: Hgb 10.5 g/dL (11.2-15.7) L 03/31/25 08:38 Hct 34.2 % (36.0-46.0) L 03/31/25 08:38 Abnormal Lab Findings: Abnormal Labs 03/31/25 08:38 Hgb 10.5 L Hct 34.2 L MCV 78 L MCH 24.1 L MCHC 30.7 L
[2025-04-01] MEDS: Oxytocin/Normal Saline 30 UNIT/500 ML BAG 2 UNITS IV (00:50)
--- NOTE | 2025-04-01 06:10 | PGE_ITS ---
Date of service: 04/01/25 Time of Service: 06:10 Informed Consent Informed Consent: Induction of Labor and Risk,Benefits,Alternatives Discussed Pelvic Exam Dilation: 3 Effacement (%): 90 station: -1 Cervix Position: mid Consistency: soft Vaginal Exam Presentation: Cephalic Contractions Monitor Mode: External Contraction Frequency(min): 1-4 mins Contraction Duration(sec): 30-6- Fetus A Monitor: External (US) Heart Rate Baseline: 130 Presentation: Cephalic Variability: Moderate (6-25 BPM) FHR Rhythm: Regular Characteristics: Normal Accelerations: 10 X 10 Decelerations: Late Recurrence: Intermittent Amniotic Membrane Status: Intact Assessment and Plan Assessment and plan (1) Encounter for induction of labor: Status: Acute Assessment and plan: #. 19-year-old at 40+2 here for eIOL, marcos on Pitocin with favorable cervix. #. Induction Course: 3 doses PO Miso, Pitocin held for unit census for approx 3 hours, Pitocin started just before 01:00 and currently at 8 mU/min. Patient amenable to AROM after breakfast. Will continue to titrate Pitocin per protocol #. Fetus: Cat 2 for intermittent late decels and periods of minimal variability. Overall moderate variability. IVF bolus given, position changes and [employer] with RN. on the unit and available for consult PRN. #. Pain: Well-managed with Nitrous. Supporting friends and family members at bedside, pt coping well. #. GBS+: s/p 1 dose Ancef. Will continue 1 g q 8 hours until delivery. #. Will give handoff to oncoming senior computer specialist at 0800. (2) Anxiety disorder, unspecified: Status: Acute (3) Needle phobia: Status: Acute (4) Moderate persistent asthma without complication: Status: Acute (5) GBS (group B Streptococcus carrier), +RV culture, currently : Status: Acute Objective Abnormal lab results 03/31/25 Range/Units 08:38 Hgb 10.5 L (11.2-15.7) g/dL Hct 34.2 L (36.0-46.0) % MCV 78 L (80-95) fL MCH 24.1 L (27.0-33.0) pg MCHC 30.7 L (32.0-36.0) % Temp Pulse Resp BP Pulse Ox 97.7 F 67 17 114/74 98 04/01/25 05:33 04/01/25 05:33 04/01/25 05:33 04/01/25 05:33 04/01/25 05:33 Laboratory Results WBC 8.80 10^3/uL (4.4-10.8) 03/31/25 08:38 RBC 4.36 10^6/uL (3.93-5.22) 03/31/25 08:38 Hgb 10.5 g/dL (11.2-15.7) L 03/31/25 08:38 Hct 34.2 % (36.0-46.0) L 03/31/25 08:38 MCV 78 fL (80-95) L 03/31/25 08:38 MCH 24.1 pg (27.0-33.0) L 03/31/25 08:38 MCHC 30.7 % (32.0-36.0) L 03/31/25 08:38 RDW 14.5 % (11.7-14.6) 03/31/25 08:38 Plt Count 266 10^3/uL (130-400) 03/31/25 08:38 MPV 11.0 fL (8.0-11.0) 03/31/25 08:38 ABO/Rh O Positive 03/31/25 08:38 Antibody Screen NEGATIVE 03/31/25 08:38 Vital Signs Reviewed: Yes Subjective Patient Reports: New Complaints Interval history since last seen: Pt side-lying, using Nitrous through her contractions which became more painful about an hour ago. Having some pain in her back. Reports that she was told by her PT during this that one of her hips is rotated, which has been the reason for her back pain during . Supported by her step-mom and friend at bedside. She would like to wait for AROM until after she's had a chance to eat breakfast. Interventions Pain Management/ Induction Indication: Other (Elective), Type of Induction: Artifical Rupture of Membranes, Misoprostol administration: Oral, Pitocin and Cervical Ripening, Results Hemoglobin/Hematocrit: Hgb 10.5 g/dL (11.2-15.7) L 03/31/25 08:38 Hct 34.2 % (36.0-46.0) L 03/31/25 08:38 Abnormal Lab Findings: Abnormal Labs 03/31/25 08:38 Hgb 10.5 L Hct 34.2 L MCV 78 L MCH 24.1 L MCHC 30.7 L Procedure Procedures: Cervical Ripening
[2025-04-01] MEDS: ceFAZolin 1 GM/50 ML BAG IVPB (06:43)
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
[2025-04-01] MEDS: NALBUPHINE 5 MG in Normal Saline 50 ML 100 MG IVPB (08:53)
--- NOTE | 2025-04-01 09:04 | W.PM.OBNL1 ---
Date of service: 04/01/25 Time of Service: 09:04 Informed Consent Informed Consent: Induction of Labor and Risk,Benefits,Alternatives Discussed Contractions Monitor Mode: External Contraction Frequency(min): every 3-4 Contraction Duration(sec): 60 Intensity: Moderate Fetus A Monitor: External (US) Heart Rate Baseline: 120 Presentation: Cephalic Variability: Moderate (6-25 BPM) Categories: Category I FHR Rhythm: Regular Accelerations: 15 X 15 Decelerations: Early Recurrence: Recurrent Amniotic Membrane Status: Ruptured Assessment Note: ROM at 0745. Assessment and Plan Assessment and plan (1) Encounter for induction of labor: Status: Acute Assessment and plan: I notified Dr Maurilio Carr of patient's wishes. I discussed with Jaden and her mother that is not an option at this time as the Dr. Carr has a patient in active labor. I recommended stopping the pitocin and providing medication for relief of her pain. She and her mother are in agreement with this plan. IV nubain was provided with good effect. Hannah blevins SECONDARY SCHOOL PRINCIPAL notified of this plan and of the patient's wishes. There is time set up in the OR for a non-urgent at 1400. Objective Temp Pulse Resp BP Pulse Ox 97.7 F 67 17 114/74 98 04/01/25 05:33 04/01/25 05:33 04/01/25 05:33 04/01/25 05:33 04/01/25 05:33 Laboratory Results WBC 8.80 10^3/uL (4.4-10.8) 03/31/25 08:38 RBC 4.36 10^6/uL (3.93-5.22) 03/31/25 08:38 Hgb 10.5 g/dL (11.2-15.7) L 03/31/25 08:38 Hct 34.2 % (36.0-46.0) L 03/31/25 08:38 MCV 78 fL (80-95) L 03/31/25 08:38 MCH 24.1 pg (27.0-33.0) L 03/31/25 08:38 MCHC 30.7 % (32.0-36.0) L 03/31/25 08:38 RDW 14.5 % (11.7-14.6) 03/31/25 08:38 Plt Count 266 10^3/uL (130-400) 03/31/25 08:38 MPV 11.0 fL (8.0-11.0) 03/31/25 08:38 ABO/Rh O Positive 03/31/25 08:38 Antibody Screen NEGATIVE 03/31/25 08:38 Subjective Patient Reports: New Complaints Interval history since last seen: Jaden's contractions became stronger and she is having a difficult time coping with labor. She is using nitrous oxide for pain relief with fair effect. She requests a at this time under general anesthesia. Results Hemoglobin/Hematocrit: Hgb 10.5 g/dL (11.2-15.7) L 03/31/25 08:38 Hct 34.2 % (36.0-46.0) L 03/31/25 08:38 Abnormal Lab Findings: Abnormal Labs 03/31/25 08:38 Hgb 10.5 L Hct 34.2 L MCV 78 L MCH 24.1 L MCHC 30.7 L
--- NOTE | 2025-04-01 11:25 | W.PM.OBNL1 ---
Date of service: 04/01/25 Time of Service: : Informed Consent Informed Consent: Induction of Labor and Risk,Benefits,Alternatives Discussed Pelvic Exam Dilation: 4 Effacement (%): 100 station: 0 Cervix Position: mid Consistency: soft Vaginal Exam Presentation: Cephalic Contractions Monitor Mode: External Contraction Frequency(min): every 3-4 Contraction Duration(sec): 60 Intensity: Moderate/Strong Fetus A Monitor: External (US) Heart Rate Baseline: 110 Presentation: Cephalic Variability: Moderate (6-25 BPM) Categories: Category II FHR Rhythm: Regular Accelerations: 15 X 15 Decelerations: Variable Recurrence: Recurrent Assessment Note: Oxygen administered via mask and position changed. 500 cc bolus provided with improvement in heart rate pattern. Assessment and Plan Assessment and plan (1) Encounter for induction of labor: Status: Acute Assessment and plan: Dr. Anton discussed cearean delivery with Jaden per her request. She wishes to have under general anesthesia and risks and benefits discussed. [employer] DEVELOPMENT team was notified by Dr anton and was scheduled. Due to heart rate decelerations, FECG was placed. Anticipate delivery when OR is available. Objective Temp Pulse Resp BP Pulse Ox 97.7 F 58 L 17 125/76 100 04/01/25 05:33 04/01/25 10:16 04/01/25 05:33 04/01/25 09:04 04/01/25 10:16 Laboratory Results WBC 8.80 10^3/uL (4.4-10.8) 03/31/25 08:38 RBC 4.36 10^6/uL (3.93-5.22) 03/31/25 08:38 Hgb 10.5 g/dL (11.2-15.7) L 03/31/25 08:38 Hct 34.2 % (36.0-46.0) L 03/31/25 08:38 MCV 78 fL (80-95) L 03/31/25 08:38 MCH 24.1 pg (27.0-33.0) L 03/31/25 08:38 MCHC 30.7 % (32.0-36.0) L 03/31/25 08:38 RDW 14.5 % (11.7-14.6) 03/31/25 08:38 Plt Count 266 10^3/uL (130-400) 03/31/25 08:38 MPV 11.0 fL (8.0-11.0) 03/31/25 08:38 ABO/Rh O Positive 03/31/25 08:38 Antibody Screen NEGATIVE 03/31/25 08:38 Vital Signs Reviewed: Yes Subjective Patient Reports: No new Complaints Interval history since last seen: Jaden is coping well with contractions and had good relief from nitrous oxide and nubain. Her family has been supporting her well and providing comfort measures. Results Hemoglobin/Hematocrit: Hgb 10.5 g/dL (11.2-15.7) L 03/31/25 08:38 Hct 34.2 % (36.0-46.0) L 03/31/25 08:38 Abnormal Lab Findings: Abnormal Labs 03/31/25 08:38 Hgb 10.5 L Hct 34.2 L MCV 78 L MCH 24.1 L MCHC 30.7 L
[2025-04-01] MEDS: AZITHROMYCIN 500 MG in Normal Saline 250 ML 250 MG IVPB (11:50)
--- NOTE | 2025-04-01 12:03 | ANES_ITS ---
Date of service: 04/01/25 Time of Service: 11:50 Anesthesia Note Report Anesthesia Note: Jaden requesting that she receive general anesthesia for as she states she will not tolerate a spinal with her anxiety and needle phobia. Lengthy conversation with patient and support in room, including patient's mom, about the increased risks associated with general anesthesia vs. spinal for c- section including aspiration/pneumonia, potential exposure to anesthetic medications, and intolerance to anesthesia. Patient is refusing a spinal and was consented as such. Patient last had some coffee with cream at 0700, treated as full stomach, and discussed with HEALTH CARE SANITARY TECHNICIAN.
--- NOTE | 2025-04-01 12:12 | W.PM.OBNL1 ---
Date of service: 04/01/25 Time of Service: 11:00 Informed Consent Informed Consent: Induction of Labor and Risk,Benefits,Alternatives Discussed Pelvic Exam Dilation: 4 Fetus A Heart Rate Baseline: 110 Variability: Moderate (6-25 BPM) Categories: Category II Accelerations: 15 X 15 Decelerations: Early and Variable Assessment and Plan Assessment and plan (1) Distress from pain in labor: Status: Acute (2) Needle phobia: Status: Acute Assessment and plan: We thoroughly discussed the risks of a CS including infection, bleeding, painful recovery, injury to nearby organs, risk for transfusion and hysterectomy. She is also aware of increased risks to the baby with a CS performed under general anesthesia. She still insists that she would like to proceed with an elective CS under GET. She declines a trial of an epidural. The team was notified and all parties are aware. Objective Temp Pulse Resp BP Pulse Ox 97.7 F 58 L 17 125/76 100 04/01/25 05:33 04/01/25 10:16 04/01/25 05:33 04/01/25 09:04 04/01/25 10:16 Laboratory Results WBC 8.80 10^3/uL (4.4-10.8) 03/31/25 08:38 RBC 4.36 10^6/uL (3.93-5.22) 03/31/25 08:38 Hgb 10.5 g/dL (11.2-15.7) L 03/31/25 08:38 Hct 34.2 % (36.0-46.0) L 03/31/25 08:38 MCV 78 fL (80-95) L 03/31/25 08:38 MCH 24.1 pg (27.0-33.0) L 03/31/25 08:38 MCHC 30.7 % (32.0-36.0) L 03/31/25 08:38 RDW 14.5 % (11.7-14.6) 03/31/25 08:38 Plt Count 266 10^3/uL (130-400) 03/31/25 08:38 MPV 11.0 fL (8.0-11.0) 03/31/25 08:38 ABO/Rh O Positive 03/31/25 08:38 Antibody Screen NEGATIVE 03/31/25 08:38 Vital Signs Reviewed: Yes Subjective Interval history since last seen: Pt is requesting a primary elective CS under general anesthesia. She reports having a needle phobia and cannot trial an epidural for pain management. She is tired, in a lot of pain due to continued contractions despite turning off pitocin and wants to have the CS. She has previously met with anesthesia and Dr. Oscar and reviewed the risks of a CS under general anesthesia. Results Hemoglobin/Hematocrit: Hgb 10.5 g/dL (11.2-15.7) L 03/31/25 08:38 Hct 34.2 % (36.0-46.0) L 03/31/25 08:38 Abnormal Lab Findings: Abnormal Labs 03/31/25 08:38 Hgb 10.5 L Hct 34.2 L MCV 78 L MCH 24.1 L MCHC 30.7 L
[2025-04-01] MEDS: Lactated Ringers 1,000 ML 200 ML IV (12:26)
[2025-04-01] MEDS: ceFAZolin 2 GM/50 ML BAG IVPB (12:31)
[2025-04-01] MEDS: Bupivacaine LIPOSOME/PF 133 MG/10 ML VIAL IJ (13:06)
[2025-04-01] MEDS: Bupivacaine 0.25% Pres-Free 30 ML VIAL (13:06)
--- NOTE | 2025-04-01 13:54 | PDOC.OPNB_ITS ---
Date of service: 04/01/25 Time of Service: 13:00 Operative Note Operative Note Delivery Method: Unscheduled STAT: No and Primary NTSV>37 Weeks: Yes DATE OF PROCEDURE: 04/01/25 PRE-OP DIAGNOSES: IUP @40.2wks, intolerance of labor, needle phobia POST-OP DIAGNOSES: same PROCEDURE: Primary Low Transverse Section SURGEON: Ashley Carr Assisting Surgeon: Leisa Hardy Estimated blood loss (mL): 700 Complications: None Patient was transported to: PACU Patient's condition: stable Indications: P0 @40.2wks who underwent induction at term. She received several doses of misoprostol, was started on pitocin and then underwent AROM. After that her contractions became more regular and stronger and she eventually requested an elective CS. She has a needle phobia and therefore declined epidural analgesia. She had previously had been counselled about the risks of having a C section under general anesthesia and after further discussion she still opted for this mode of delivery. Findings: Normal appearing uterus, ovaries and tubes. Normal appearing placenta. Female infant Procedure Description: After informed consent was signed the patient was taken to the operating room. The heart rate was checked and was 115. She had emptied her bladder immediately prior to the procedure and requested that we wait to place the figueroa until she was asleep. She underwent abdominal and vaginal prep and was draped in the dorsal supine position with a leftward tilt. A time out was performed. She was then given general anesthesia. When this was adequate the procedure began quickly. A skin incision was made with the scalpel and carried down to the underlying layer of fascia with blunt dissection. The fascia was incised on either side of the midline and the fascial incision extended laterally with a combination of sharp and blunt dissection. The inferior edge of the fascia was grasped with mikaela clamps and tented up and dissected down with blunt dissection. Then the superior edge of the fascial incision was grasped with mikaela clamps and tented up and dissected down with blunt dissection. The rectus muscles were in the midline and the peritoneum was entered bluntly. The peritoneal incision was extended laterally with blunt dissection. The bladder blade was inserted. A transverse incision was made in the lower uterine segment with the scalpel. The incision was extended superiorly and inferiorly with blunt pressure. The infants head delivered with fundal pressure followed by the shoulders and the rest of the body. There was a loose cord around the neck or body that easily reduced over the body. The cord was clamped x2 and cut. The baby was handed to the [facility]. Cord blood was collected. The placenta delivered with fundal massage and gentle cord traction and appeared to be intact. The uterus was exteriorized and cleared of clots and debris. The uterine incision was closed with 0-vicryl in a running locked fashion with a second layer of suture imbricating the first. There was some continued bleeding from the incision edges in the middle and at each edge. Several [id number] sutures of 0-vicryl were placed with resulting good hemostasis. The uterus was placed back into the abdominal cavity. Clots were cleared from the peritoneal cavity with lap sponges. The incision was inspected once again and good hemostasis was noted. There was good hemostasis of the rectus muscles. The fascia was closed with 0- vicryl in a running unlocked fashion. The skin was injected with bupivocaine along the length of the incision. The subcuticular layer was irrigated and closed with interrupted sutures of 3-0 vicryl. The skin was closed with 4-0 vicryl in a running subcuticular fashion. The incision was cleaned. Mastisol and steristrips were placed. A dressing was placed. The fundus was palpated to be firm. The patient was moved to the stretcher and taken to the recovery room in stable condition. Infant Gender: Female
[2025-04-01] MEDS: fentaNYL 100 MCG/2 ML VIAL IVP (14:18)
[2025-04-01] MEDS: Normal Saline Flush 10 ML SYR IVP ×2 (14:18→20:02)
--- NOTE | 2025-04-01 16:47 | W.ANESPOSTOP ---
Postoperative Evaluation Date, Time and Location Date Performed: 04/01/25 Time Performed: 16:37 Patient Location: Obstetrics Vital Signs Most Recent Imported Vital Signs: Most Recent Vital Signs Temp Pulse Resp BP Pulse Ox 36.6 C 64 16 131/81 98 04/01/25 16:30 04/01/25 16:30 04/01/25 15:00 04/01/25 16:30 04/01/25 14:30 Pain Score Most Recent Pain Score: Most Recent Pain Score Pain Level [Lower Abdomen] 3 04/01/25 15:00 Pain Level 4 04/01/25 14:24 Assessment Mental Status: Awake (Alert & Oriented to Patient Baseline) Airway and Respiratory Function: Patent airway with normal (patient baseline) respiratory exam Cardiovascular Function: Hemodynamically Stable Hydration Status: Adequately Hydrated Nausea & Vomiting: No Nausea or Vomiting Pain: Pain is tolerable per patient Peripheral Nerve Block: Patient did not receive a nerve block
[2025-04-01] MEDS: Budesonide/Formoterol 160/4.5 6 GM 60 PUFF INH IH (20:02)
[2025-04-01] MEDS: Acetaminophen 325 MG TAB 650 MG PO (20:02)
[2025-04-01] MEDS: Montelukast 10 MG TAB PO (20:02)
[2025-04-01] MEDS: Ketorolac 30 MG/ML VIAL IVP (20:03)
[2025-04-02] VITALS: BP 108/70; PULSE 60; RESP 17; TEMP 37; O2SAT 98
[2025-04-02] MEDS: Acetaminophen 325 MG TAB 650 MG PO ×5 (03:34→19:56)
[2025-04-02] MEDS: Docusate Sodium 100 MG CAP PO ×2 (03:35→18:10)
[2025-04-02 04:00] VITALS: BP 101/88; PULSE 62; RESP 16; TEMP 37; O2SAT 98
[2025-04-02] MEDS: oxyCODONE 5 MG TAB PO ×5 (05:36→22:01)
[2025-04-02] MEDS: Ketorolac 30 MG/ML VIAL IVP (05:36)
[2025-04-02] MEDS: Normal Saline Flush 10 ML SYR IVP (05:36)
[2025-04-02 07:21] LABS: Abs Immature Grans 0.13 10^3/uL (0.0-0.06); HCT 26.3 % (36.0-46.0); HGB 8.0 g/dL (11.2-15.7); Immature Grans % 0.9 %; MCH 23.3 pg (27.0-33.0); MCHC 30.4 % (32.0-36.0); MCV 77 fL (80-95); MPV 11.5 fL (8.0-11.0); Platelet Count 258 10^3/uL (130-400); RBC 3.43 10^6/uL (3.93-5.22); RDW 14.6 % (11.7-14.6); RDW-SD 40.1 fL; WBC 15.04 10^3/uL (4.4-10.8)
[2025-04-02] MEDS: Prenatal Multivitamin w/CA,FE TAB 1 TAB PO (07:51)
[2025-04-02 09:00] VITALS: BP 122/82; PULSE 95; RESP 16; TEMP 36.3; O2SAT 98
--- NOTE | 2025-04-02 09:05 | W.PM.OBPNV1 ---
Date of service: 04/02/25 Time of Service: 09:05 Assessment and Plan Assessment and plan (1) care and examination immediately after delivery: Status: Acute Assessment and plan: POD#1 s/p PCS, doing well. No significant concerns. Will get out of bed now. Routine care. Subjective Subjective Interval history: Pt reports she is doing ok. She got a little rest overnight. Baby is nursing ok though primarily on the right side. Tolerating oral intake without n/v. +flatus. Has not been out of bed yet and the figueroa is still in place. Exam Physical Exam Vital signs: Temp Pulse Resp BP Pulse Ox 98.6 F 62 16 101/88 98 04/02/25 04:00 04/02/25 04:00 04/02/25 04:00 04/02/25 04:00 04/02/25 04:00 Vital Signs Reviewed: Yes Constitutional Constitutional: no acute distress and cooperative Detailed HEENT Exam Head: Present normocephalic and atraumatic Respiratory Exam Respiratory Exam: Normal Abdominal Exam Abdomen: Tender (mildly) Comments: Dressing clean, dry except a very small area of old blood on the lower right corner Fundal Exam Fundus: Below Umbilicus and Firm Extremities Exam Extremity Exam: Edema (trace) Detailed Neurological Exam Neurological: Present alert, oriented X3 and CN II-XII intact Results Hemoglobin/Hematocrit: Hgb 8.0 g/dL (11.2-15.7) L D 04/02/25 07:12 Hct 26.3 % (36.0-46.0) L 04/02/25 07:12 Abnormal Lab Findings: Abnormal Labs 03/31/25 04/02/25 08:38 07:12 WBC 15.04 H RBC 3.43 L Hgb 10.5 L 8.0 L D Hct 34.2 L 26.3 L MCV 78 L 77 L MCH 24.1 L 23.3 L MCHC 30.7 L 30.4 L MPV 11.5 H Absolute Neutrophils 11.60 H Absolute Monocytes 0.95 H
[2025-04-02] MEDS: Ibuprofen 600 MG TAB PO ×2 (11:50→18:05)
[2025-04-02 13:00] VITALS: BP 120/71; PULSE 83; RESP 16
[2025-04-02 16:26] VITALS: BP 116/71; PULSE 75; RESP 16
[2025-04-02] MEDS: Budesonide/Formoterol 160/4.5 6 GM 60 PUFF INH IH (19:55)
[2025-04-02] MEDS: Montelukast 10 MG TAB PO (19:55)
[2025-04-03] VITALS: BP 119/72; PULSE 87; RESP 17; TEMP 36.8; O2SAT 99
[2025-04-03] MEDS: Acetaminophen 325 MG TAB 650 MG PO ×3 (00:08→12:35)
[2025-04-03] MEDS: Ibuprofen 600 MG TAB PO ×3 (00:08→12:35)
[2025-04-03] MEDS: oxyCODONE 5 MG TAB PO ×2 (03:00→08:55)
[2025-04-03 08:46] VITALS: BP 128/85; PULSE 75; RESP 16; TEMP 36.8; O2SAT 98
[2025-04-03 12:30] VITALS: BP 118/78; PULSE 75; RESP 17
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
== END 2025-04-03 14:15 | disposition home or self-care (01) | DRG 787 ==
PROVIDERS: Obstetrics & Gynecology; Admitting Provider Advanced Practice Midwife; Visit Provider Advanced Practice Midwife
PROC: 10D00Z1 Extraction of Products of Conception, Low, Open Approach (ICD-10-PCS; CPT 59514; principal; 2025-04-01 14:00)
DX: O99.824 Streptococcus B carrier state complicating childbirth (principal); R45.851 Suicidal ideations; Z37.0 Single live birth; Z3A.40 40 weeks gestation of pregnancy; J45.40 Moderate persistent asthma, uncomplicated; F40.231 Fear of injections and transfusions; F32.A Depression, unspecified; G89.29 Other chronic pain; G47.30 Sleep apnea, unspecified; Z79.899 Other long term (current) drug therapy; O76 Abnormality in fetal heart rate and rhythm complicating labor and delivery; O99.344 Other mental disorders complicating childbirth; O99.52 Diseases of the respiratory system complicating childbirth; O99.02 Anemia complicating childbirth; D64.9 Anemia, unspecified; O99.354 Diseases of the nervous system complicating childbirth; O12.04 Gestational edema, complicating childbirth; Z62.810 Personal history of physical and sexual abuse in childhood
CPT/HCPCS: 59514; 36415; 85027; 86850; 86900; 86901; 59200; 85025; J0131; J0330; J0456; J0665; J0666; J0690; J1100; J1885; J2250; J2300; J2371; J2405; J2704; J3010; J3490